=== PATIENT | female | born 1970 | race African-American/Black ===

== ENCOUNTER 2019-03-29 09:27 | Inpatient (IN) ==
[2019-03-29] MEDS ORDERED: NS 500 ML IV ONE (10:13)
[2019-03-29] MEDS ORDERED: TYLENOL PO ONE (10:15)
[2019-03-29 10:43] LABS: BASO# 0.06 X1000 (0.0-0.2); BASO% 0.8 % (0.0-0.8); EOS# 0.04 X1000 (0.0-0.7); EOS% 0.5 % (0.0-10.0); HEMATOCRIT 47.8 % (37.0-47.0); HEMOGLOBIN 16.2 g/dL (12.0-16.0); LYMPH# 2.37 X1000 (1.2-3.4); LYMPH% 30.4 % (20.5-51.1); MCH 32.2 PG (27-31); MCHC 33.9 g/dL (33-37); MONO# 0.67 X1000 (0.11-0.59); MONO% 8.6 % (1.7-9.3); MPV 11.1 FL (7.4-10.4); NEUT# 4.65 X1000 (1.4-6.5); NEUT% 59.7 % (42.2-75.2); PLT 383 X1000 (130-400); RBC 5.03 XMIL (4.2-5.4); RDW 20.6 % (11.5-14.5); WBC 7.79 X1000 (4.8-10.8)
[2019-03-29 11:08] LABS: AGAP 13; ALB/GLOB RATIO 0.8; ALBUMIN 3.7 g/dL (3.5-5.0); ALKALINE PHOSPHATASE 64 U/L (32-104); BUN 8 mg/dL (8-22); CALCIUM 9.6 mg/dL (8.8-10.2); CHLORIDE 95 mmol/L (98-107); COSMO 269; CREATININE 0.7 mg/dL (0.5-0.9); ESTIMATED GFR > 60; GLUCOSE 115 mg/dL (70-104); GOT 36 U/L (10-30); GPT 23 U/L (10-36); POTASSIUM 4.5 mmol/L (3.5-5.1); SODIUM 135 mmol/L (136-145); TCO2 27 mmol/L (25-35); TOTAL BILIRUBIN 0.53 mg/dL (0.20-1.00); TOTAL PROTEIN 8.1 g/dL (6.3-8.3)
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
[2019-03-29 13:30] LABS: INR 0.97; PTT 29.8 Seconds (22.3-41.8)
--- NOTE | 2019-03-29 13:31 | EKG Report ---
Test Performed on : 03/29/2019 1:21:56 PM Test Reason : CP Blood Pressure : / mmHG Vent. Rate : 070 BPM Atrial Rate : 070 BPM P-R Int : 134 ms QRS Dur : 076 ms QT Int : 426 ms P-R-T Axes : -25 -26 -15 degrees QTc Int : 460 ms Normal sinus rhythm. Anterior infarct , age undetermined Abnormal ECG No previous ECGs available Unconfirmed Result
[2019-03-29] MEDS ORDERED: HEPARIN IV PRN ×2 (14:13→18:20)
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
[2019-03-29] MEDS ORDERED: HEPARIN 25,000 UNITS/D5W 25,000 UNIT/250 ML IV.SOLN IV SCH (14:15)
[2019-03-29] MEDS ORDERED: ZOFRAN IV PRN (14:26)
[2019-03-29] MEDS ORDERED: TYLENOL PO PRN (14:26)
--- NOTE | 2019-03-29 14:31 | Diag Imaging Result Doc PS360 ---
MRI BRAIN W/WO CONTRAST - 03/29/2019 INDICATION: new cva symptoms COMPARISON: Head CT earlier today FINDINGS: There is a moderate area of restricted diffusion at the medial posterior left occipital lobe. This is at the inferior tissue. This is within the left posterior cerebral artery territory. There is intense enhancement here consistent with luxury perfusion. There is significant atrophy due to an old infarction at the right middle cerebral artery territory. This causes some ex vacuo midline shift to the right. IMPRESSION: 1. Recent left posterior cerebral artery territory infarction. 2. Large old infarction at the right cerebral hemisphere. 3. This report was discussed with RT Edilberto on 03/29/2019 at 2:25 PM and was readback. Electronically signed by Gabe Bansal 03/29/2019 2:29 PM
--- NOTE | 2019-03-29 14:33 | Diag Imaging Result Doc PS360 ---
MRA BRAIN W/O CONTRAST - 03/29/2019 INDICATION: new cva symptoms TECHNIQUE: Noncontrast time of flight technique was used COMPARISON: None FINDINGS: There is occlusion of the distal left posterior cerebral artery, at about the level of the posterior horn of the left lateral ventricle. The right posterior cerebral artery is patent. The anterior and middle cerebral arteries are patent bilaterally. No aneurysm. No significant vascular stenosis. 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 Electronically signed by Gabe Bansal 03/29/2019 2:30 PM
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
[2019-03-29] MEDS: NICODERM PATCH TD SCH (17:12)
[2019-03-29] MEDS: M.V.I.-12 10 ML, FOLIC ACID 1 MG, MAGNESIUM SULFATE 1 GM, THIAMINE 100 MG in NS 1,000 ML IV SCH (17:13)
[2019-03-29 17:47] LABS: UR AMPHETAMINES QUAL NONE DETECTED (NONE DETECT); UR BARBITUATES QUAL NONE DETECTED (NONE DETECT); UR BENZODIAZEPIN QUAL NONE DETECTED (NONE DETECT); UR CANNABINOIDS QUAL PRESUMPTIVE POSITIVE (NONE DETECT); UR COCAINE QUAL PRESUMPTIVE POSITIVE (NONE DETECT); UR METHADONE QUAL NONE DETECTED (NONE DETECT); UR OPIATES QUAL NONE DETECTED (NONE DETECT); UR OXYCODONE QUAL NONE DETECTED (NONE DETECT); UR PCP QUAL NONE DETECTED (NONE DETECT)
[2019-03-29 17:55] LABS: INR 1.05; PROTIME 13.8 Seconds (11.0-16.0)
[2019-03-29] MEDS: HEPARIN 25,000 UNITS/D5W 25,000 UNIT/250 ML IV.SOLN IV SCH (18:37)
[2019-03-29] MEDS: NS 1,000 ML IV SCH ×2 (19:06→23:54)
[2019-03-29] MEDS: VODKA PO SCH (19:49)
--- NOTE | 2019-03-29 22:12 | ECHO REPORT ---
ORDER DATE: 03/29/2019 MEASUREMENTS: Septal thickness 1.7, left ventricular internal diameter end diastole 3.6, posterior wall thickness 1.2, left ventricular internal diameter end systole 2.1, aortic root 2.7, left atrium 2.4. SUMMARY: 1. Fair quality study. 2. Aortic valve is trileaflet and opens normally on 2-dimensional images. The peak gradient across the aortic valve is less than 10 mmHg. Mitral, tricuspid and pulmonic valves are without evidence of structural abnormality. The aortic root is normal in size. The aortic arch appears normal size. The distal aortic arch appears to demonstrate abrupt taper, although it is not well imaged. 3. Normal left ventricular chamber size with mild concentric left hypertrophy is demonstrated. There is some sigmoid hypertrophy of the basal septum. The left ventricle is hyperdynamic with estimated left ventricular ejection fraction greater than 75%. No regional wall abnormalities are evident. Left atrium, right atrium and right ventricle are normal in size with grossly preserved right ventricular systolic function. 4. No pericardial effusion. 5. Appearance of inferior vena cava suggests normal central venous pressure. CONCLUSIONS: 1. No significant valvular abnormality evident. 2. Distal aortic arch appears to taper rather abruptly. Significance not clear. Consider chest CT angiography to further define. 3. Mild concentric left hypertrophy with hyperdynamic left ventricle and estimated left ventricular ejection fraction at least 75%. cc: MD Sabine Flores CRNP
--- NOTE | 2019-03-30 07:05 | Carotid Study ---
DATE: 03/29/2019 REQUESTING PROVIDER: GRACY Morris TIRE INSTALLER: [place] INDICATIONS: Altered mental status. EQUIPMENT: Smartjog Vivid E9 ultrasound system with a 9 L-D transducer. FINDINGS: Complete diagram of ultrasound images can be seen scanned into the patient's medical record. The peak systolic velocity on the right side is noted in the distal internal carotid artery and is noted to be 68. The peak systolic velocity on the left side is noted to be in the distal internal carotid artery and is noted to be 101. The calculated internal common ratio on the right is 0.83 and left 1.22. Calculated stenosis on the right 0 to 39%, left 0 to 39%. There appears to be some atherosclerosis. By strict velocity criteria, this does not produce a hemodynamically significant flow-limiting stenosis. Both vertebral arteries were antegrade flow. INTERPRETATION: By strict velocity criteria, no hemodynamically significant flow-limiting stenosis. cc: MD Sabine Baez CRNP
[2019-03-30 07:11] LABS: BASO# 0.03 X1000 (0.0-0.2); BASO% 0.4 % (0.0-0.8); EOS# 0.07 X1000 (0.0-0.7); EOS% 0.8 % (0.0-10.0); HEMATOCRIT 39.9 % (37.0-47.0); HEMOGLOBIN 12.8 g/dL (12.0-16.0); IMM GRAN# 0.03 X1000 (0.0-0.04); IMM GRAN% 0.4 % (0.0-0.5); LYMPH# 2.62 X1000 (1.2-3.4); LYMPH% 31.6 % (20.5-51.1); MCH 30.6 PG (27-31); MCHC 32.1 g/dL (33-37); MCV 95.5 FL (81-99); MONO# 0.58 X1000 (0.11-0.59); NEUT# 4.97 X1000 (1.4-6.5); NEUT% 59.8 % (42.2-75.2); PLT 325 X1000 (130-400); RBC 4.18 XMIL (4.2-5.4); RDW 19.8 % (11.5-14.5)
--- NOTE | 2019-03-30 07:23 | Diag Imaging Result Doc PS360 ---
EXAM: CHEST-PORTABLE HISTORY: sob TECHNIQUE: Single view COMPARISON: 07/06/2016 FINDINGS: Poor inspiratory effort. The heart is not enlarged. The vessels are not distended. There are no infiltrates. No effusion identified. IMPRESSION: Negative exam. Electronically signed by Rk Conteh 03/30/2019 7:21 AM
--- NOTE | 2019-03-30 07:34 | EKG Report ---
Test Performed on : 03/30/2019 06:24:46 AM Test Reason : chest pain Blood Pressure : / mmHG Vent. Rate : 080 BPM Atrial Rate : 080 BPM P-R Int : 152 ms QRS Dur : 078 ms QT Int : 406 ms P-R-T Axes : 048 029 034 degrees QTc Int : 468 ms Normal sinus rhythm. Nonspecific T wave abnormality Prolonged QT Abnormal ECG When compared with ECG of 29-MAR-2019 13:21, (Unconfirmed) Criteria for Anterior infarct are no longer present Nonspecific T wave abnormality, improved in Inferior leads Nonspecific T wave abnormality has replaced inverted T waves in Anterior leads Confirmed by Herman CEDILLO, Kel Montaño ([id number]) on 04/01/2019 9:22:50 AM
[2019-03-30 07:38] LABS: AGAP 12; ALB/GLOB RATIO 0.8; ALBUMIN 2.8 g/dL (3.5-5.0); ALKALINE PHOSPHATASE 48 U/L (32-104); BUN 7 mg/dL (8-22); CALCIUM 8.1 mg/dL (8.8-10.2); CHLORIDE 103 mmol/L (98-107); CK TOTAL 40 U/L (24-173); COSMO 272; CREATININE 0.5 mg/dL (0.5-0.9); ESTIMATED GFR > 60; GLUCOSE 71 mg/dL (70-104); GOT 18 U/L (10-30); GPT 13 U/L (10-36); MAGNESIUM 1.9 mg/dL (1.5-2.7); POTASSIUM 2.9 mmol/L (3.5-5.1); SODIUM 138 mmol/L (136-145); TCO2 23 mmol/L (25-35); TOTAL BILIRUBIN 0.54 mg/dL (0.20-1.00); TOTAL PROTEIN 6.1 g/dL (6.3-8.3)
[2019-03-30] MEDS: VODKA PO SCH ×3 (09:18→18:53)
[2019-03-30] MEDS: M.V.I.-12 10 ML, FOLIC ACID 1 MG, MAGNESIUM SULFATE 1 GM, THIAMINE 100 MG in NS 1,000 ML IV SCH (09:18)
[2019-03-30] MEDS: NICODERM PATCH TD SCH (09:18)
[2019-03-30] MEDS: NS 1,000 ML IV SCH ×3 (09:19→23:13)
--- NOTE | 2019-03-30 12:40 | PROGRESS NOTE ---
DATE: 03/30/2019 ADDENDUM: Cardiothoracic surgery in [place] was contacted via the transfer center. I spoke with Dr. Parker. Clinical details of the patient's clinical presentation and background medical history were discussed at length. CT scan from yesterday was also discussed and was available to CV surgery in [place]. At present, it was recommended that patient be managed with anticoagulation with serial imaging studies to follow up clot in ascending thoracic aorta. The patient therefore to continue on anticoagulation with intravenous heparin. Hematology has been consulted to assist with evaluation for probable hypercoagulability. cc: Roland Taylor MD
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
--- NOTE | 2019-03-30 15:24 | EEG REPORT ---
DATE: 03/30/2019 EEG NUMBER: [id number] COMMENT: This is a digitally recorded EEG on a 49-year-old patient with episodic memory gap, possible altered awareness, question of seizure, imaging evidence of bilateral infarction, acute on the left. FINDINGS: During waking, medium amplitude 10 hertz posterior rhythm is present symmetrically and reacts at times to eye opening. Background contains polymorphic and rhythmic theta across the frontal and central regions symmetrically. Drowsing occurred with appearance of more generalized slowing and attenuation of the posterior rhythm. EKG, muscle contraction and movement artifacts were present but did not hinder interpretation. Photic stimulation did not significantly alter the record. Hyperventilation was not done. No definite epileptiform discharge was identified. INTERPRETATION: Normal EEG. CORRELATION: The absence of epileptiform discharges on a single EEG does not exclude a clinical diagnosis of seizures, but there is nothing on this record to suggest the presence of a seizure disorder. EEG is often normal with subcortical infarction and normal EEG does not exclude recent subcortical infarction. cc: Noemy Chambers III, MD MTDD
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
[2019-03-30] MEDS: HEPARIN 25,000 UNITS/D5W 25,000 UNIT/250 ML IV.SOLN IV SCH (20:33)
[2019-03-31] MEDS: NS 1,000 ML IV SCH ×2 (06:27→14:38)
[2019-03-31 07:21] LABS: BASO# 0.03 X1000 (0.0-0.2); BASO% 0.4 % (0.0-0.8); EOS# 0.11 X1000 (0.0-0.7); EOS% 1.5 % (0.0-10.0); HEMATOCRIT 37.6 % (37.0-47.0); HEMOGLOBIN 12.3 g/dL (12.0-16.0); IMM GRAN# 0.02 X1000 (0.0-0.04); IMM GRAN% 0.3 % (0.0-0.5); LYMPH# 2.67 X1000 (1.2-3.4); MCH 31.2 PG (27-31); MCHC 32.7 g/dL (33-37); MCV 95.4 FL (81-99); MONO# 0.54 X1000 (0.11-0.59); MONO% 7.5 % (1.7-9.3); MPV 10.9 FL (7.4-10.4); NEUT# 3.84 X1000 (1.4-6.5); NEUT% 53.3 % (42.2-75.2); PLT 314 X1000 (130-400); RBC 3.94 XMIL (4.2-5.4); RDW 19.4 % (11.5-14.5); WBC 7.21 X1000 (4.8-10.8)
[2019-03-31 08:35] LABS: AGAP 13; ALB/GLOB RATIO 0.8; ALBUMIN 2.6 g/dL (3.5-5.0); ALKALINE PHOSPHATASE 45 U/L (32-104); BUN 4 mg/dL (8-22); CHLORIDE 105 mmol/L (98-107); COSMO 272; CREATININE 0.5 mg/dL (0.5-0.9); ESTIMATED GFR > 60; GLUCOSE 82 mg/dL (70-104); GOT 16 U/L (10-30); GPT 11 U/L (10-36); MAGNESIUM 1.8 mg/dL (1.5-2.7); POTASSIUM 2.8 mmol/L (3.5-5.1); SODIUM 138 mmol/L (136-145); TCO2 20 mmol/L (25-35); TOTAL BILIRUBIN 0.29 mg/dL (0.20-1.00); TOTAL PROTEIN 5.7 g/dL (6.3-8.3)
[2019-03-31] MEDS: VODKA PO SCH ×3 (08:36→16:52)
[2019-03-31] MEDS: NICODERM PATCH TD SCH (09:01)
[2019-03-31] MEDS: M.V.I.-12 10 ML, FOLIC ACID 1 MG, MAGNESIUM SULFATE 1 GM, THIAMINE 100 MG in NS 1,000 ML IV SCH (09:01)
[2019-03-31] MEDS ORDERED: HEPARIN IV ONE (10:41)
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
[2019-03-31] MEDS: VITAMIN B-1 PO SCH (13:43)
[2019-03-31] MEDS: POTASSIUM CHLORIDE 20% LIQUID PO SCH ×2 (13:44→16:55)
--- NOTE | 2019-03-31 16:12 | Diag Imaging Result Doc PS360 ---
EXAM: CT ANGIOGRAM THORAX INDICATION: aorta clot, eval progression TECHNIQUE: This exam was performed using automated exposure control, adjustment of mA or kV according to patient size, and/or use of iterative reconstruction technique. Thin section axial images and 3-D MIPS were obtained. COMPARISON: 03/30/2019 FINDINGS: There has been no change in the thrombi in the aortic arch seen on previous studies. There are no pulmonary artery filling defects identified. The mediastinum is unchanged. There has been development of trace bilateral effusions and there is mild bibasilar atelectasis. The lungs are clear, otherwise. The upper abdomen is stable. IMPRESSION: 1.Stable aortic arch thrombus as compared to the recent prior study. 2.Interval development of trace bilateral effusions. Electronically signed by Braden Holt 03/31/2019 4:10 PM
[2019-03-31] MEDS: HEPARIN 25,000 UNITS/D5W 25,000 UNIT/250 ML IV.SOLN IV SCH (17:50)
[2019-03-31] MEDS ORDERED: BLISTEX MEDICATED BERRY LIP BALM TOP ONE (23:18)
[2019-04-01] MEDS: NS 1,000 ML IV SCH ×5 (01:19→22:03)
[2019-04-01] MEDS: HEPARIN 25,000 UNITS/D5W 25,000 UNIT/250 ML IV.SOLN IV SCH ×3 (01:21→22:02)
[2019-04-01 06:42] LABS: BASO# 0.03 X1000 (0.0-0.2); BASO% 0.4 % (0.0-0.8); EOS% 1.5 % (0.0-10.0); IMM GRAN# 0.02 X1000 (0.0-0.04); IMM GRAN% 0.3 % (0.0-0.5); LYMPH# 2.67 X1000 (1.2-3.4); LYMPH% 39.1 % (20.5-51.1); MCHC 32.4 g/dL (33-37); MCV 95.6 FL (81-99); MONO# 0.44 X1000 (0.11-0.59); MONO% 6.4 % (1.7-9.3); MPV 11.1 FL (7.4-10.4); NEUT# 3.57 X1000 (1.4-6.5); NEUT% 52.3 % (42.2-75.2); PLT 316 X1000 (130-400); RBC 3.87 XMIL (4.2-5.4); RDW 19.4 % (11.5-14.5); WBC 6.83 X1000 (4.8-10.8)
[2019-04-01 07:01] LABS: AGAP 10; ALB/GLOB RATIO 0.8; ALBUMIN 2.4 g/dL (3.5-5.0); ALKALINE PHOSPHATASE 43 U/L (32-104); BUN 1 mg/dL (8-22); CALCIUM 8.4 mg/dL (8.8-10.2); CHLORIDE 107 mmol/L (98-107); COSMO 271; CREATININE 0.4 mg/dL (0.5-0.9); ESTIMATED GFR > 60; GLUCOSE 87 mg/dL (70-104); GOT 14 U/L (10-30); GPT 11 U/L (10-36); MAGNESIUM 1.8 mg/dL (1.5-2.7); POTASSIUM 3.4 mmol/L (3.5-5.1); SODIUM 138 mmol/L (136-145); TCO2 21 mmol/L (25-35); TOTAL BILIRUBIN 0.28 mg/dL (0.20-1.00); TOTAL PROTEIN 5.5 g/dL (6.3-8.3)
[2019-04-01] MEDS: VODKA PO SCH ×3 (07:12→16:00)
[2019-04-01] MEDS: M.V.I.-12 10 ML, FOLIC ACID 1 MG, MAGNESIUM SULFATE 1 GM, THIAMINE 100 MG in NS 1,000 ML IV SCH (08:00)
[2019-04-01] MEDS: VITAMIN B-1 PO SCH (08:01)
[2019-04-01] MEDS: NICODERM PATCH TD SCH (08:01)
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
[2019-04-01] MEDS ORDERED: POTASSIUM CHLORIDE 20% LIQUID PO ONE (12:12)
[2019-04-01] MEDS: ATIVAN IV PRN (14:37)
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
--- NOTE | 2019-04-01 16:02 | EKG Report ---
Test Performed on : 04/01/2019 2:34:26 PM Test Reason : chest pain Blood Pressure : / mmHG Vent. Rate : 082 BPM Atrial Rate : 082 BPM P-R Int : 144 ms QRS Dur : 076 ms QT Int : 372 ms P-R-T Axes : 004 002 022 degrees QTc Int : 434 ms Normal sinus rhythm. Normal ECG When compared with ECG of 30-MAR-2019 06:24, Nonspecific T wave abnormality no longer evident in Anterolateral leads Confirmed by Gary Hooker MD ([id number]) on 04/04/2019 12:13:05 PM
[2019-04-02] MEDS: NS 1,000 ML IV SCH ×4 (01:45→17:45)
[2019-04-02 05:41] LABS: BASO# 0.03 X1000 (0.0-0.2); BASO% 0.4 % (0.0-0.8); EOS# 0.16 X1000 (0.0-0.7); EOS% 2.2 % (0.0-10.0); HEMATOCRIT 37.4 % (37.0-47.0); HEMOGLOBIN 12.2 g/dL (12.0-16.0); IMM GRAN# 0.02 X1000 (0.0-0.04); IMM GRAN% 0.3 % (0.0-0.5); LYMPH# 2.51 X1000 (1.2-3.4); MCH 31.1 PG (27-31); MCHC 32.6 g/dL (33-37); MCV 95.4 FL (81-99); MONO# 0.56 X1000 (0.11-0.59); MONO% 7.6 % (1.7-9.3); MPV 11.2 FL (7.4-10.4); NEUT# 4.11 X1000 (1.4-6.5); NEUT% 55.5 % (42.2-75.2); PLT 321 X1000 (130-400); RBC 3.92 XMIL (4.2-5.4); RDW 19.6 % (11.5-14.5); WBC 7.39 X1000 (4.8-10.8)
[2019-04-02 06:08] LABS: AGAP 9; ALB/GLOB RATIO 0.8; ALBUMIN 2.5 g/dL (3.5-5.0); ALKALINE PHOSPHATASE 44 U/L (32-104); BUN 2 mg/dL (8-22); CALCIUM 8.4 mg/dL (8.8-10.2); CHLORIDE 106 mmol/L (98-107); COSMO 272; CREATININE 0.4 mg/dL (0.5-0.9); ESTIMATED GFR > 60; GLUCOSE 95 mg/dL (70-104); GOT 16 U/L (10-30); GPT 10 U/L (10-36); MAGNESIUM 1.6 mg/dL (1.5-2.7); POTASSIUM 3.6 mmol/L (3.5-5.1); SODIUM 138 mmol/L (136-145); TCO2 23 mmol/L (25-35); TOTAL BILIRUBIN 0.24 mg/dL (0.20-1.00); TOTAL PROTEIN 5.6 g/dL (6.3-8.3)
[2019-04-02] MEDS: VODKA PO SCH ×2 (07:37→11:37)
[2019-04-02] MEDS: M.V.I.-12 10 ML, FOLIC ACID 1 MG, MAGNESIUM SULFATE 1 GM, THIAMINE 100 MG in NS 1,000 ML IV SCH (09:06)
[2019-04-02] MEDS: NICODERM PATCH TD SCH (09:06)
[2019-04-02] MEDS: VITAMIN B-1 PO SCH (09:06)
[2019-04-02] MEDS ORDERED: SODIUM CHLORIDE 0.9% 10 ML ONE (10:39)
[2019-04-02] MEDS ORDERED: XYLOCAINE 2% VISCOUS ONE (10:39)
[2019-04-02] MEDS ORDERED: XYLOCAINE-MPF 2% ONE (10:52)
[2019-04-02] MEDS ORDERED: DIPRIVAN 1% ONE ×2 (10:52→10:53)
[2019-04-02] MEDS ORDERED: ROBINUL ONE (10:52)
[2019-04-02] MEDS ORDERED: CLAVE TWINSITE 32 IN 11959 ONE (11:16)
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
--- NOTE | 2019-04-02 18:06 | PROGRESS NOTE ---
DATE: 04/02/2019 SUBJECTIVE: Patient underwent transesophageal echocardiogram earlier today and preliminary report is of clot in ascending aorta without evidence of aortic dissection. She denies any chest discomfort or shortness of breath. OBJECTIVE: Vital Signs: Blood pressure 126/85, heart rate 77, oxygen saturation 98% on room air. There is no significant jugular venous distention. Chest: Clear to auscultation. Cardiac: Reveals a regular rate and rhythm without appreciable murmur or gallop. Extremities: There is no evidence of peripheral edema. LABORATORY DATA: Includes a white blood cell count 7.39, hematocrit 37.4, hemoglobin 12.2, platelet count 321,000. Sodium 138, potassium 3.6, chloride 106, complex at 23, BUN 2, creatinine 0.4, glucose 95. IMPRESSION: 1. Thrombus and ascending aorta. 2. Suspected hypercoagulability with history of previous pulmonary embolus and previous cerebrovascular accident. 3. Recent cerebrovascular accident and left posterior cerebral artery territory. 4. CT scan demonstrates emboli to right kidney. 5. Hypertension. 6. Hyperlipidemia. 7. Chronic cigarette use. 8. Occasional alcohol use and occasional polysubstance abuse with marijuana. RECOMMENDATIONS: 1. Continue efforts to anticoagulate. 2. Follow up Hematology consultation in regards to hypercoagulability. cc: Roland Taylor MD
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
[2019-04-02] MEDS: HEPARIN 25,000 UNITS/D5W 25,000 UNIT/250 ML IV.SOLN IV SCH (20:35)
[2019-04-03] MEDS: NS 1,000 ML IV SCH ×2 (01:46→20:00)
[2019-04-03 06:57] LABS: BASO# 0.02 X1000 (0.0-0.2); BASO% 0.3 % (0.0-0.8); EOS# 0.15 X1000 (0.0-0.7); EOS% 2.1 % (0.0-10.0); HEMATOCRIT 36.8 % (37.0-47.0); HEMOGLOBIN 11.9 g/dL (12.0-16.0); LYMPH# 2.53 X1000 (1.2-3.4); LYMPH% 34.8 % (20.5-51.1); MCH 30.6 PG (27-31); MCHC 32.3 g/dL (33-37); MCV 94.6 FL (81-99); MONO# 0.47 X1000 (0.11-0.59); MONO% 6.5 % (1.7-9.3); MPV 11.5 FL (7.4-10.4); NEUT# 4.09 X1000 (1.4-6.5); NEUT% 56.3 % (42.2-75.2); PLT 325 X1000 (130-400); RBC 3.89 XMIL (4.2-5.4); RDW 19.5 % (11.5-14.5); WBC 7.26 X1000 (4.8-10.8)
[2019-04-03 07:21] LABS: AGAP 8; ALB/GLOB RATIO 0.8; ALBUMIN 2.6 g/dL (3.5-5.0); ALKALINE PHOSPHATASE 56 U/L (32-104); BUN 3 mg/dL (8-22); CALCIUM 8.5 mg/dL (8.8-10.2); CHLORIDE 105 mmol/L (98-107); COSMO 270; CREATININE 0.5 mg/dL (0.5-0.9); ESTIMATED GFR > 60; GLUCOSE 89 mg/dL (70-104); GOT 15 U/L (10-30); GPT 11 U/L (10-36); MAGNESIUM 1.6 mg/dL (1.5-2.7); POTASSIUM 3.6 mmol/L (3.5-5.1); SODIUM 137 mmol/L (136-145); TCO2 24 mmol/L (25-35); TOTAL BILIRUBIN 0.25 mg/dL (0.20-1.00); TOTAL PROTEIN 5.8 g/dL (6.3-8.3)
[2019-04-03] MEDS: VITAMIN B-1 PO SCH (09:22)
[2019-04-03] MEDS: M.V.I.-12 10 ML, FOLIC ACID 1 MG, MAGNESIUM SULFATE 1 GM, THIAMINE 100 MG in NS 1,000 ML IV SCH (09:22)
[2019-04-03] MEDS: NICODERM PATCH TD SCH (09:23)
--- NOTE | 2019-04-03 09:38 | Transesophageal Echocardiogram ---
ORDER DATE: 04/02/2019 PROCEDURE PERFORMED: Transesophageal echocardiogram to evaluate the ascending aorta and descending aorta clot. Informed consent was obtained from the patient. Intravenous access was already established. The patient was brought to the cardiac catheterization laboratory. The patient's oropharynx was sprayed with Cetacaine 1% to anesthetize. Anesthesia was present. Propofol was given. A transesophageal probe was easily passed into the esophagus and ultrasound pictures were obtained. FINDINGS: 1. Normal left ventricular cavity size. Estimated ejection fraction of 60%. 2. Aortic valve leaflets are mildly sclerosed, trileaflet. 3. Mitral valve was normal. 4. Tricuspid valve was normal. 5. Pulmonic valve was normal. 6. Left atrium was normal, left atrial appendage was normal. 7. Right atrium was normal. 8. Saline contrast study was negative for patent foramen ovale. 9. Doppler studies revealed there is no aortic stenosis. There is mild aortic regurgitation. 10. There is mild mitral regurgitation. 11. Mild tricuspid regurgitation. 12. Ascending aorta was mildly dilated. There was no dissection noted. There was a mobile clot, thrombus noted, measuring 2.6 to 1.5 cm. The descending aorta had immobile plaque. 13. Ascending aorta beyond that and the distal transverse arch could not be well visualized. CONCLUSIONS: Mobile thrombus was noted in the ascending aorta, measuring 2.6 cm x 1.5 cm. cc: MD Placido De Jesus MD
[2019-04-03] MEDS ORDERED: LOPRESSOR PO ONE (12:42)
--- NOTE | 2019-04-03 12:42 | PROGRESS NOTE ---
DATE: 04/03/2019 SUBJECTIVE: The patient continues asymptomatic from a cardiovascular standpoint on room air. OBJECTIVE: Vital Signs: Blood pressure 123/84, heart rate 68, oxygen saturation 99% on room air. Neck: There is no significant jugular venous distention. Chest: Clear to auscultation. Cardiac: Regular rate and rhythm without appreciable murmur or gallop. Extremities: There is no evidence of peripheral edema. LABORATORY DATA: Includes a white blood cell count of 7.26, hematocrit 36.8, hemoglobin 11.9, platelet count 325,000. Sodium 137, potassium 3.6, chloride 105, carbon dioxide 24, BUN 3, creatinine 0.5. Albumin 2.6. IMPRESSION: 1. Thrombus in ascending aorta. 2. Suspected hypercoagulability with history of previous pulmonary embolus and previous cerebrovascular accident in the past. 3. Recent cerebrovascular accident involving the left posterior cerebral artery territory, and recent emboli to right kidney. 4. Hypertension. 5. Hyperlipidemia. 6. Chronic cigarette use. 7. Regular significant alcohol use acknowledged today. The patient also has history of polysubstance abuse with marijuana. RECOMMENDATIONS: 1. Continue efforts to anticoagulate. 2. CT scans reviewed with Radiology. It may be helpful to pursue a gated CT angiogram of the ascending aorta and aortic arch. This will require moving her to [place] for the study, and then back by ambulance. This was discussed with the patient. 3. Patient counseled regarding need to avoid alcohol use, and to stop smoking cigarettes and marijuana. The former will make it hard to anticoagulate her with warfarin on a consistent basis, and the latter will promote her tendency for hypercoagulability. 4. Followup Hematology consultation in regards to hypercoagulability. cc: Roland Taylor MD
--- NOTE | 2019-04-03 13:31 | PROGRESS NOTE ---
DATE: 04/03/2019 SUBJECTIVE: Ms. Sutton feels good, breathing comfortably, remains afebrile. No new focal complaints or changes. OBJECTIVE: Vital signs: Temperature 98.6 degrees, pulse 68, respirations 22, blood pressure 123/84. HEENT: Pupils are equal and round. Lungs: clear in all lung turner. Cardiovascular: Regular rhythm and rate without murmur or S3. Abdomen: Soft. Skin: Warm and dry. ASSESSMENT AND PLAN: 1. Thrombus in the ascending aorta. I do not find any evidence of dissection or aortic trauma. Suspect hypercoagulopathy, awaiting on her studies. We will continue anticoagulation. I suspect she will be on anticoagulation for life given her history of pulmonary thromboemboli and deep venous thromboses. She has had a cerebrovascular accident in the left posterior cerebral artery territory and she has also had what appears to be ischemic emboli to the right kidney. 2. Hypertension. 3. Hyperlipidemia. 4. Chronic cigarette use. 5. Occasional polysubstance use with marijuana. 6. We will discuss with the team but probably will keep her here another 48 hours and change her over to a p.o. anticoagulant. I suspect we will use Eliquis. cc: Tato Keller MD
--- NOTE | 2019-04-03 14:29 | NEUROLOGY PROGRESS NOTE ---
DATE: 04/03/2019 SUBJECTIVE: No major overnight events. She has no specific complaints currently. OBJECTIVE: Vital Signs: Afebrile, blood pressure 123/84, pulse 68. General: Ms. Sutton is sitting up in bed with her tray table, eating lunch. Neurologic: She is awake, alert, and oriented. She is spontaneous at times. Her aunt is at the bedside today. She follows simple commands consistently. I watched her use her limbs purposefully today. LABORATORY DATA: Reviewed in the chart. ASSESSMENT AND PLAN: Recent medial left occipital lobe infarct without definite corresponding clinical findings. Stable neurologic course. She is on anticoagulation for thrombi within the ascending and descending aortic arch, and she is at risk for recurrent stroke. Continue close neurologic checks. No further suggestions to add to my prior note. cc: Thalia Mcneill MD [facility]
[2019-04-03] MEDS: HEPARIN 25,000 UNITS/D5W 25,000 UNIT/250 ML IV.SOLN IV SCH (16:07)
--- NOTE | 2019-04-03 16:17 | Diag Imaging Result Doc PS360 ---
CT ANGIOGRAM HEART W/WO CONT - 04/03/2019 INDICATION: ascending aorta and arch thrombus TECHNIQUE: COMPARISON: 03/31/2019, 03/30/2019, 03/29/2019 FINDINGS: There is a stable large thrombus in the aortic arch. This is not changed. Heart size remains top normal. There are trace bilateral pleural effusions. No infiltrates in the lungs. Bones are intact and normally aligned. IMPRESSION: 1. Trace bilateral pleural effusions. 2. No change in the relatively large thrombus in the aortic arch. This exam was performed using automated exposure control, adjustment of mA or kV according to patient size, and/or use of iterative reconstruction technique Electronically signed by Gabe Bansal 04/03/2019 4:15 PM
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
[2019-04-04] MEDS: NS 1,000 ML IV SCH (04:34)
[2019-04-04] MEDS: ATIVAN IV PRN ×2 (05:44→11:19)
[2019-04-04 07:30] LABS: AGAP 13; ALB/GLOB RATIO 0.9; ALBUMIN 2.9 g/dL (3.5-5.0); ALKALINE PHOSPHATASE 49 U/L (32-104); BUN 3 mg/dL (8-22); CALCIUM 8.7 mg/dL (8.8-10.2); CHLORIDE 104 mmol/L (98-107); COSMO 274; CREATININE 0.6 mg/dL (0.5-0.9); ESTIMATED GFR > 60; GLUCOSE 93 mg/dL (70-104); GOT 19 U/L (10-30); GPT 12 U/L (10-36); MAGNESIUM 1.7 mg/dL (1.5-2.7); POTASSIUM 3.5 mmol/L (3.5-5.1); SODIUM 139 mmol/L (136-145); TCO2 22 mmol/L (25-35); TOTAL BILIRUBIN 0.23 mg/dL (0.20-1.00); TOTAL PROTEIN 6.2 g/dL (6.3-8.3)
[2019-04-04 08:56] LABS: CHOLESTEROL 141 mg/dL (0-200); HDL 40 mg/dL (45-65); LDL 83 mg/dL; TRIGLYCERIDES 92 mg/dL (35-135); VLDL 18 mg/dL
[2019-04-04] MEDS ORDERED: FOLIC ACID PO SCH (09:00)
[2019-04-04] MEDS: NICODERM PATCH TD SCH (09:30)
[2019-04-04] MEDS: VITAMIN B-1 PO SCH (09:30)
[2019-04-04] MEDS: M.V.I.-12 10 ML, FOLIC ACID 1 MG, MAGNESIUM SULFATE 1 GM, THIAMINE 100 MG in NS 1,000 ML IV SCH (09:30)
[2019-04-04 09:56] LABS: BASO# 0.03 X1000 (0.0-0.2); BASO% 0.4 % (0.0-0.8); EOS# 0.25 X1000 (0.0-0.7); HEMATOCRIT 38.2 % (37.0-47.0); HEMOGLOBIN 12.3 g/dL (12.0-16.0); IMM GRAN# 0.03 X1000 (0.0-0.04); IMM GRAN% 0.4 % (0.0-0.5); LYMPH# 2.79 X1000 (1.2-3.4); LYMPH% 33.7 % (20.5-51.1); MCH 30.8 PG (27-31); MCHC 32.2 g/dL (33-37); MCV 95.5 FL (81-99); MONO% 7.2 % (1.7-9.3); MPV 12.2 FL (7.4-10.4); NEUT# 4.58 X1000 (1.4-6.5); NEUT% 55.3 % (42.2-75.2); PLT 330 X1000 (130-400); RDW 20.1 % (11.5-14.5); WBC 8.28 X1000 (4.8-10.8)
[2019-04-04] MEDS ORDERED: LOPRESSOR PO SCH ×2 (10:00→17:00)
[2019-04-04] MEDS ORDERED: HEPARIN IV PRN (11:07)
[2019-04-04] MEDS: HEPARIN 25,000 UNITS/D5W 25,000 UNIT/250 ML IV.SOLN IV SCH ×2 (11:19→12:02)
--- NOTE | 2019-04-04 14:35 | NEUROLOGY PROGRESS NOTE ---
DATE: 04/04/2019 COMMENT: Ms Sutton has had improving mental status during observation over the last several days. She continues critically ill with aortic thrombosis. Family present at the bedside today had some questions about stroke and memory loss. We discussed typical mechanism of thromboembolic cerebral infarction to explain her apparent bilateral cerebral infarctions at young age. We discussed the possibility that there could be small ischemic brain infarcts not apparent on imaging studies. We discussed cognitive impairment and/or personality change possible with cerebral infarctions without major neurologic deficit such as paralysis or blindness. No new suggestions from Neurology standpoint today. cc: MD KRYSTIN Vásquez III
[2019-04-04 16:07] VITALS: BP 164/95
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
[2019-04-05] MEDS ORDERED: LIPITOR PO SCH (21:00)
== END 2019-04-04 18:43 | disposition short-term general hospital (02) | DRG 299 ==
LOC: SUPCPDRO → ED 09:27 → SUATTDRO 14:55 → EDIPHOLD 14:55 → 2N 16:38
PROVIDERS: ATTEND Internal Medicine